=== PATIENT | male | born 1945 | race Caucasian/White ===

== ENCOUNTER 2021-03-10 21:08 | Inpatient (IN) | payer BC, OTHER ==
[~2021-03-10] VITALS: Ht 188 cm; Wt 80.7 kg
[2021-03-10] MEDS ORDERED: ATOR40TA PO (21:19)
[2021-03-10] MEDS ORDERED: METO-357 PO (21:19)
[2021-03-10] MEDS ORDERED: ICOS1CAP PO (21:19)
[2021-03-10] MEDS ORDERED: OLAN5TAB30 PO (21:19)
[2021-03-10] MEDS ORDERED: ACET-73 PO (21:19)
--- NOTE | 2021-03-10 22:16 | NUR ---
Crisis counseler Ngozi will be coming in 10-15 minutes to rewrite the hold.
--- NOTE | 2021-03-10 22:33 | NUR ---
Report given to Lakshmi FINLEY M[facility].
--- NOTE | 2021-03-10 22:52 | NUR ---
Crisis counseler Ngozi arrived to renew patient hold.
--- NOTE | 2021-03-10 23:45 | NUR ---
Pt. admitted to U 145B, under care of Dr. Alcala/Robin Belongs List completed
[2021-03-10 23:50] VITALS: BP 130/67
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
[2021-03-11] MEDS ORDERED: MAGNESIUM HYDROXIDE 30 ML LIQUID UDC PO PRN (00:30)
[2021-03-11] MEDS ORDERED: MAG HYDROX/AL HYDROX/SIMETH 30 ML LIQUID UDC PO PRN (00:30)
[2021-03-11] MEDS ORDERED: ASPI-869 PO (00:53)
[2021-03-11] MEDS ORDERED: RIVA15TA2 PO (00:53)
[2021-03-11] MEDS: TEMAZEPAM 7.5 MG CAPSULE PO PRN (01:59)
--- NOTE | 2021-03-11 05:43 | NUR ---
Call placed to Kenny Woodward NP for [employer] [facility]. He returned call right away. Order received for a Routine EKG and medication reconciliation will be done this am.
[2021-03-11] MEDS ORDERED: RIVA20TA PO (06:34)
[2021-03-11 07:30] VITALS: BP 102/51
[2021-03-11] MEDS: METOPROLOL SUCCINATE XL 50 MG TAB.SR.24H PO SCH (08:32)
[2021-03-11] MEDS: NICOTINE 14 MG/24HR PATCH TD SCH (08:36)
[2021-03-11] MEDS ORDERED: ASPIRIN EC 325 MG TABLET.DR PO SCH (09:00)
[2021-03-11] MEDS ORDERED: Medication Not On Formulary EA (Icosapent Ethyl (Vascepa) 1 GM) PO SCH (09:00)
[2021-03-11] MEDS: OLANZAPINE ZYDIS 5 MG TAB.RAPDIS PO SCH ×2 (09:00→16:42)
[2021-03-11] MEDS ORDERED: RIVAROXABAN 15 MG TABLET PO SCH (09:00)
[2021-03-11] MEDS: OMEGA-3 FATTY ACIDS/FISH OIL CAPSULE PO SCH (11:07)
[2021-03-11 16:00] VITALS: BP 115/64
[2021-03-11] MEDS: ATORVASTATIN 40 MG TABLET PO SCH (17:02)
[2021-03-11] MEDS: RIVAROXABAN 10 MG TABLET PO SCH (17:04)
--- NOTE | 2021-03-11 18:03 | NUR ---
pt noted highly agitated at this time, threatening staff. Stating he is having episodes of diarrhea yelling at staff "give me some imodium you fucking cunts. 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 Pt threatening to flako staff and "fuck you up if you fuck with me. You'll all be out of a job tomorrow." Noted incontinent of stool, but noted to be hard stools. No diarrhea present. Dr. Shaw notified.
[2021-03-11] MEDS ORDERED: LORAZEPAM 2 MG/1 ML VIAL IM ONE (19:45)
[2021-03-11] MEDS ORDERED: diphenhydrAMINE 50 MG/1 ML VIAL IM ONE (19:45)
[2021-03-11] MEDS ORDERED: HALOPERIDOL LACTATE 5 MG/1 ML VIAL IM ONE (19:45)
[2021-03-11 20:06] VITALS: BP 106/54
--- NOTE | 2021-03-12 00:05 | NUR ---
GPS MEDICATION ADMINISTRATION CLARIFICATION: All medications given to this patient on 03/11/21 from 1900 till now were given by this commercial lines underwriter.
--- NOTE | 2021-03-12 00:10 | NUR ---
Received patient in his room. Patient was yelling at the staff and was insistent that the room be not touched. The room was covered with stool. Stool on the floor, the bed ,the bedside table, patients cloths etc. This investigative writer made many attempts to calm the patient down but the patient was agitated and posturing in an aggressive manor at the nurse. When the patient stood up he was naked and covered with feces.This patient was unable to contract for safety or be redirected despite the reassurance and clear communication that was provided. Dr. Hirsch was notified and orders were received for IM injection. This investigative writer explained the procedure and necessity of the medication to the patient. No hands on were required and the patient complied. VS monitored for an hour as well as frequent face to face assessments. At this time the patient is calm and resting. Satellite Installer noted that the patient has been noncompliant with medications during the day.
[2021-03-12] MEDS: OMEGA-3 FATTY ACIDS/FISH OIL CAPSULE PO SCH ×2 (09:00→11:33)
[2021-03-12] MEDS: OLANZAPINE ZYDIS 5 MG TAB.RAPDIS PO SCH ×3 (09:00→16:20)
[2021-03-12] MEDS: NICOTINE 14 MG/24HR PATCH TD SCH (09:00)
[2021-03-12] MEDS: METOPROLOL SUCCINATE XL 50 MG TAB.SR.24H PO SCH (09:00)
--- NOTE | 2021-03-12 10:24 | NUR ---
Family Contact: This SW contacted patient's ex-girlfriend Cornel ([phone]) to discuss treatment and discharge plan, per pt's request and the number does not exist.
--- NOTE | 2021-03-12 10:24 | NUR ---
REHAN Initial Discharge Plan: Patient will return back home upon discharge located at [address] [place] [address]. This SW contacted patient's ex-girlfriend Cornel ([phone]) to discuss treatment and discharge plan, per pt's request and the number does not exist. REHAN will work with the MD and pt to coordinate proper discharge.
--- NOTE | 2021-03-12 10:26 | NUR ---
Social Work Note/Substance Abuse Intervention: Patient was provided with a brief substance abuse intervention and referred to [facility] ([phone]), [facility] ([phone]), and [facility] ([phone]) for meth abuse and alcohol use.
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
--- NOTE | 2021-03-12 12:57 | NUR ---
UR Note: Auth# [id number] Obtained form Berta lee with [facility] Dept. 2 days approved. Automated Manufacturing Instructor. will be assigned after clinical is received. Faxed clinicals to [phone] and enter the auth# on the fax. Review due today 03/12. This SW will contact [phone] [facility] Dept after fax.
--- NOTE | 2021-03-12 13:20 | NUR ---
UR Note: Auth# [id number] Obtained form Berta lee with [facility] Dept. 2 days approved. This SW faxed clinicals to ([phone]) to Berta Flores. This SW contacted [facility] Dept ([phone]) and spoke with Vincent from [facility] Dept who stated that she does not have case workers number but will alert her to contact this SW.
--- NOTE | 2021-03-12 13:37 | NUR ---
SW Note: This flex o writer operator met with patient to conduct therapy. Patient appeared manic and labile. Patient appeared hypersexual. Patient appeared bizarre with sexual inappropriate comments. Patient asked this flex o writer operator to kiss this writers hand. Patient made inappropriate comments to this flex o writer operator "you're a machine, you're so fine". This SW unable to conduct therapy at this time due to pt being inappropriate.
--- NOTE | 2021-03-12 15:15 | NUR ---
GPS: Nursing Notes: Destructive Behavior Toward Others: Patient is awake and responding to his name, gets easily irritable when redirected, poor anger management, resistant with nursing care, disorganized, unkempt appearance, loud and pressured speech at times, episodes of smearing feces all over his bed, pulling feces with his fingers this am, showered and assisted to change his cloth by staff, refusing his medications this am, redirected and reoriented during shift, patient was sexually inappropriate during therapeutic groups done by transition social worker, stating sexually inappropriate comments toward female staff, unable to formulate a viable plan for self care at this times, continue with treatment plan.
[2021-03-12 15:20] VITALS: BP 114/57
[2021-03-12] MEDS: ATORVASTATIN 40 MG TABLET PO SCH (17:10)
[2021-03-12] MEDS: RIVAROXABAN 10 MG TABLET PO SCH (17:14)
[2021-03-12] MEDS: LORAZEPAM 1 MG TABLET PO PRN (19:48)
[2021-03-12 20:17] VITALS: BP 126/59
--- NOTE | 2021-03-13 05:14 | NUR ---
Received Pt in the hallway making asexually inappropriate comments toward this lyric writer. Pt educated on acceptable public behavior and appropriate personal boundaries. Pt not receptive to limit setting and raised his voice stating, "well maybe I just won't say anything at all to you anymore!" Pt is anxious and easily agitated, affect is elevated and mood is labile. Pt was offered prn Ativan, and reluctantly took it. Pt stated he was worried if he takes the Ativan that "it will keep me here longer. Pt was educated on hi medication and treatment regimen. Pt appeared to calm within the hour after prn was administered, but remained demanding, entitled, and rude to the staff. Pt has poor insight and is in denial regarding his psychiatric condition. Denies SI and is able to contract for safety. Denied pain, VS stable.
--- NOTE | 2021-03-13 06:07 | NUR ---
Pt overheard yelling in the day room at the [facility] and Charge Nurse to "give me the goddamn remote so I can change the channel!" This blog writer went into the day room to find the Pt yallimg and berating the staff. This blog writer took the remote and turned the TV off and telling the Pt when he calms down and treats staff with respect, the TV will be turned back on. Pt yelled "you're a fucking cunt! Just look in the mirror and you will see a cunt". Pt was verbally redirected and he went into his room.
[2021-03-13 07:30] VITALS: BP 126/61
[2021-03-13] MEDS: OMEGA-3 FATTY ACIDS/FISH OIL CAPSULE PO SCH (08:32)
[2021-03-13] MEDS: METOPROLOL SUCCINATE XL 50 MG TAB.SR.24H PO SCH (08:32)
[2021-03-13] MEDS: OLANZAPINE ZYDIS 5 MG TAB.RAPDIS PO SCH ×2 (08:33→17:07)
[2021-03-13] MEDS: NICOTINE 14 MG/24HR PATCH TD SCH (08:33)
[2021-03-13 16:14] VITALS: BP 114/60
[2021-03-13] MEDS: RIVAROXABAN 10 MG TABLET PO SCH (17:07)
[2021-03-13] MEDS: ATORVASTATIN 40 MG TABLET PO SCH (17:07)
[2021-03-13 20:26] VITALS: BP 118/64
--- NOTE | 2021-03-13 22:36 | NUR ---
Patient in bed, isolative, interacts with staff, compliant with care, poor insight and semi fair judgement. Patient will remain in a psych facility for further evaluation and treatment.
[2021-03-14] MEDS: TEMAZEPAM 7.5 MG CAPSULE PO PRN ×2 (00:42→22:34)
[2021-03-14 07:58] VITALS: BP 136/84
--- NOTE | 2021-03-14 09:00 | NUR ---
UR Note: Auth# [id number]. ([phone]) contacted and transferred to Department. This SW (F:[phone]) clinicals to the department and directed to Car Record Clerk. is Judy Davies Per intake, insurances do not have direct number to case consultant. This SW spoke with pen or pencil assembly machine operator Jenn ([phone]) who stated that case workers do not have direct numbers.
--- NOTE | 2021-03-14 09:51 | NUR ---
SW Individual Therapy: This SW met with patient to discuss patient's presenting problem paranoid thought content. Patient appears manic and was singing to this SW. Pt unable to have proper conversation at this time.
[2021-03-14] MEDS: NICOTINE 14 MG/24HR PATCH TD SCH (10:25)
[2021-03-14] MEDS: METOPROLOL SUCCINATE XL 50 MG TAB.SR.24H PO SCH (10:25)
[2021-03-14] MEDS: OMEGA-3 FATTY ACIDS/FISH OIL CAPSULE PO SCH (10:25)
[2021-03-14] MEDS: OLANZAPINE ZYDIS 5 MG TAB.RAPDIS PO SCH ×2 (10:25→18:25)
--- NOTE | 2021-03-14 11:03 | NUR ---
UR Note: Auth# [id number]. This SW received a call from Judy Gerard ([phone]) (F:[phone]) and requested clinicals. This SW stated this speech writer sent clinicals twice this morning. Judy expressed she will check her fax and will let this SW know if they have received it.
--- NOTE | 2021-03-14 13:58 | NUR ---
UR Note: This SW contacted manager case Judy Alvares via email and phone ([phone]) to confirm if clinicals were received. Per intake, case Katy reached out to the Dumping Machine Operator. Judy Angeles via email and Judy responded and said that she will review the clinical faxed by this SW and that she received them. {The first two days were approved and clinical was received for the & pending review.} This SW requested via email and voicemail to Judy Alvares to send fax of authorization days.
[2021-03-14] MEDS: ACETAMINOPHEN 325 MG TABLET PO PRN ×2 (14:44→23:13)
[2021-03-14 15:53] VITALS: BP 124/74
--- NOTE | 2021-03-14 16:01 | NUR ---
REHAN Coordination of Care: Patient will follow up with primary doctor Dr. Rice located at [address] [place] [address]; ([phone]) on June 13 at 1:30PM and [facility] guest relations receptionist stated if they have any early availability they will contact pt.
[2021-03-14] MEDS: ATORVASTATIN 40 MG TABLET PO SCH (18:25)
[2021-03-14] MEDS: RIVAROXABAN 10 MG TABLET PO SCH (19:17)
[2021-03-14] MEDS: LORAZEPAM 1 MG TABLET PO PRN (20:47)
[2021-03-14] MEDS: Z GUARD REMEDY PASTE 57 GM TUBE TOP SCH (21:04)
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
[2021-03-14 21:16] VITALS: BP 98/54
--- NOTE | 2021-03-14 22:39 | NUR ---
Patient came to nursing station asking for medication to help him sleep -- PRN Restoril given
--- NOTE | 2021-03-14 23:15 | NUR ---
Patient pacing up and down hallway, calm and cooperative - still with difficulty falling asleep - PRN Tylenol given for comfort.
[2021-03-15] MEDS: LORAZEPAM 1 MG TABLET PO PRN (03:27)
--- NOTE | 2021-03-15 03:29 | NUR ---
Patient again pacing up and down hallway - verbalizes anxiety + insomnia. PRN Ativan given - VSS
--- NOTE | 2021-03-15 06:07 | NUR ---
No acute events overnight. Patient remains hypersexual & inappropriate at times but able to be redirected. He was calm and cooperative with care and able/willing to follow commands. Only slept a total of 1.5 hours.
[2021-03-15 07:30] VITALS: BP 116/72
--- NOTE | 2021-03-15 08:14 | NUR ---
UR Note: Auth# [id number]. This SW (F:[phone]) clinicals to the department and directed to Gas Meter Checker. is Judy Gerard. This SW contacted Judy ([phone]) and left a voicemail that this SW faxed clinicals.
[2021-03-15] MEDS: NICOTINE 14 MG/24HR PATCH TD SCH ×2 (09:00→09:04)
[2021-03-15] MEDS: OMEGA-3 FATTY ACIDS/FISH OIL CAPSULE PO SCH (09:03)
[2021-03-15] MEDS: OLANZAPINE ZYDIS 5 MG TAB.RAPDIS PO SCH ×2 (09:04→16:42)
[2021-03-15] MEDS: Z GUARD REMEDY PASTE 57 GM TUBE TOP SCH ×2 (09:05→20:28)
[2021-03-15] MEDS: METOPROLOL SUCCINATE XL 50 MG TAB.SR.24H PO SCH (09:05)
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
--- NOTE | 2021-03-15 10:42 | NUR ---
UR Note: This SW received a call from Ene who is covering for rn field case manager Judy ([phone]) who stated that she will review patient's clinicals and will call this SW. This SW stated that Nathan from our intake department stated Berta the initial rn field case manager authorized unit 03/13 and this SW stated that this continuity writer has been faxing clinicals daily and Ene rn field case manager stated she has received them and will confirm. This SW requested for Ene to fax this SW confirmation.
--- NOTE | 2021-03-15 10:53 | NUR ---
UR Note: This SW received a phone a phone call from transportation maintenance worker Ene ([phone]) who stated pt is authorized until 03/16 and will require daily clinicals faxed. This SW request confirmation to be faxed.
[2021-03-15 16:00] VITALS: BP 108/63
[2021-03-15] MEDS: ATORVASTATIN 40 MG TABLET PO SCH (17:47)
[2021-03-15] MEDS: RIVAROXABAN 10 MG TABLET PO SCH (17:47)
[2021-03-15 20:00] VITALS: BP 119/62
[2021-03-15] MEDS: ACETAMINOPHEN 325 MG TABLET PO PRN (20:27)
[2021-03-16] MEDS: TEMAZEPAM 7.5 MG CAPSULE PO PRN (02:29)
[2021-03-16 07:30] VITALS: BP 123/81
[2021-03-16 08:01] VITALS: BP 123/81
[2021-03-16] MEDS: OMEGA-3 FATTY ACIDS/FISH OIL CAPSULE PO SCH (08:01)
[2021-03-16] MEDS: METOPROLOL SUCCINATE XL 50 MG TAB.SR.24H PO SCH (08:01)
[2021-03-16] MEDS: OLANZAPINE ZYDIS 5 MG TAB.RAPDIS PO SCH (08:01)
[2021-03-16] MEDS: Z GUARD REMEDY PASTE 57 GM TUBE TOP SCH (08:02)
[2021-03-16] MEDS: NICOTINE 14 MG/24HR PATCH TD SCH (08:02)
--- NOTE | 2021-03-16 08:09 | NUR ---
DISCHARGE NOTE: Patient will return back home upon discharge located at [address] [place] [address]. Patient will be provided via taxi transportation at 1PM. Patient does not have any support at this time. Patient is alert and oriented x4 and is able to independently take care of himself. Patient is aware and agreeable with discharge plan. Patient denies suicidal or homicidal ideation. Patient denies visual or auditory hallucinations. Patient will follow up with primary doctor Dr. Rice located at [address] [place] [address]; ([phone]) on June 13 at 1:30PM and [facility] outboard motorboat rigger stated if they have any early availability they will contact pt. This SW provided list of psychiatry provided list of outpatient psychiatry: [facility] ([phone]), [facility]; ([phone]), [facility] Serrano; ([phone]), Marshall Lopez; ([phone]), Erlin Harper; ([phone]), and Nakul Ayon ([phone]). This SW provided resources to [facility]; ([phone]), [facility] ([phone]), and [facility] ([phone]). Patient was referred to [facility] ) and was referred to [facility] ([phone]) for smoking/alcohol abuse. Patient presents with euthymic mood and congruent affect.
--- NOTE | 2021-03-16 08:24 | NUR ---
UR NOTE: This SW faxed clinicals to behavioral health case manager Judy ([phone]). This SW faxed patient's discharge.
--- NOTE | 2021-03-16 10:10 | NUR ---
CALLED IN PT PSYCHIATRIC PRESCRIPTION TO PT'S PREFERRED PHARMACY, [facility] IN [place] . CALLED IN PRESCRIPTIONS TO PHARMACIST DEREK.
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
== END 2021-03-16 12:15 | disposition home or self-care (01) | DRG 885 ==
LOC: ER 21:09 → GPS 21:48 → UNDOADMIN 21:48 → GPS 23:36
PROVIDERS: ADMIT Psychiatry & Neurology Psychiatry; ATTEND Nurse Practitioner Acute Care
DX: F31.64 Bipolar disorder, current episode mixed, severe, with psychotic features (principal); F23 Brief psychotic disorder; I48.91 Unspecified atrial fibrillation; E78.5 Hyperlipidemia, unspecified; F17.210 Nicotine dependence, cigarettes, uncomplicated; F17.200 Nicotine dependence, unspecified, uncomplicated; Z79.01 Long term (current) use of anticoagulants
CPT/HCPCS: 36415; 93005; 97161; A4663; J1200; J1630; J2060